=== PATIENT | female | born 1970 | race Caucasian/White ===

== ENCOUNTER 2017-01-25 18:38 | Emergency (ER) | payer MEDICAID, OTHER ==
[~2017-01-25] VITALS: Ht 162.6 cm; Wt 86.0 kg
[2017-01-25 18:41] VITALS: Ht 162.6 cm; Wt 86.0 kg
[2017-01-25] MEDS ORDERED: KETOROLAC 60 MG INJ IM STA (20:32)
--- NOTE | 2017-01-25 22:44 | RADRPT ---
PROCEDURE: XR Knee. CLINICAL INDICATION: Left knee pain and clicking TECHNIQUE: AP, lateral and tunnel views of the left knee were obtained. COMPARISON: None. FINDINGS: No fracture or osseous lesion is identified. There is no evidence for dislocation. Mineralization is within normal limits. Joint spaces are preserved. No evidence of effusion or soft tissue swelli ng is identified. RPTAT:HJJR IMPRESSION: Unremarkable left knee series. Physician Lou Date Time Electronically viewed and signed by Mehul Page Physician on 01/25/2017 22:43 JR/
[2017-01-25] MEDS ORDERED: IBUP-1542 PO (23:32)
[2017-01-25 23:53] VITALS: BP 118/65; PULSE 60; RESP 18
--- NOTE | 2017-01-26 02:42 | ERD ---
ER Documentation Chief Complaint Date/Time DATE: 01/26/17 TIME: 02:36 Chief Complaint numbness right leg x 2 weeks HPI 46-year-old female with no significant past medical history presents the ED complaining of numbness and tingling of her right leg. Reports that she has chronic back pain that started about 2 weeks ago. States that she has been taking Tylenol. Denies any fever, chills, weakness, nausea, vomiting, loss of sensation, loss of range of motion. ROS All systems reviewed and are negative except as per history of present illness. Medications Home Meds Active Scripts Ibuprofen* (Motrin*) 600 Mg Tab, 600 MG PO Q6, #30 TAB take with food Prov:JACK GUILLEN PA-C 01/25/17 Allergies Allergies: Coded Allergies: No Known Allergy (Unverified , 01/25/17) PMhx/Soc Medical and Surgical Hx: pt denies Medical Hx, pt denies Surgical Hx Hx Alcohol Use: No Hx Substance Use: No Hx Tobacco Use: No Smoking Status: Never smoker Physical Exam Vitals Vital Signs Date Time Temp Pulse Resp B/P Pulse Ox O2 Delivery O2 Flow Rate FiO2 01/25/17 23:53 60 18 118/65 97 Room Air 01/25/17 18:41 97.3 78 20 138/68 96 Physical Exam Const: Xus-[id number]-sxegdmiqi, well-nourished. In no acute distress. Head: Atraumatic, normocephalic Eyes: Normal Conjunctiva without injection. No purulent discharge. ENT: Normal external ear, nose. Moist oropharynx without tonsillar exudates. Non -erythematous pharynx. Uvula midline. No drooling. No trismus. Neck: No cervical midline tenderness. Full range of motion. No meningismus. No cervical lymphadenopathy. No JVD. Resp: Clear to auscultation bilaterally. No wheezing, rhonchi, rales, or crackles. No accessory muscle use. No retractions. Cardio: Regular rate and rhythm. No murmurs, rubs or gallops. Abd: Soft, nontender, non distended. Normal bowel sounds. No palpable masses. No rebound tenderness. No guarding. Negative McBurney's point. Negative psoas sign. Negative obturator sign. Skin: No petechiae or rashes Back: No midline tenderness. No CVA tenderness. Positive straight leg test bilaterally. Ext: No cyanosis, or edema. Neur: Awake and alert. Normal gait. Normal coordination. Psych: Normal Mood and Affect Results 24 hrs Current Medications Medications (Trade) Dose Ordered Sig/Jun Route PRN Reason Start Time Stop Time Status Last Admin Dose Admin Ketorolac Tromethamine (Toradol) 60 mg ONCE STAT IM 01/25/17 20:32 01/25/17 20:34 DC 01/25/17 20:54 Procedures/MDM This is a 46-year-old female patient with no significant past medical history presents the ED complaining of right leg numbness and tingling and back pain as well as a clicking sensation of her left knee. PROCEDURE: XR Knee. CLINICAL INDICATION: Left knee pain and clicking TECHNIQUE: AP, lateral and tunnel views of the left knee were obtained. COMPARISON: None. FINDINGS: No fracture or osseous lesion is identified. There is no evidence for dislocation. Mineralization is within normal limits. Joint spaces are preserved. No evidence of effusion or soft tissue swelling is identified. RPTAT:HJJR IMPRESSION: Unremarkable left knee series. Patient is ambulating here in the ED without difficulty. Denied wanting an lennox wrap or crutches. Denies saddle anesthesia, numbness or tingling, urine or bowel incontinence, weakness. Low suspicion for cauda equina syndrome, cord compression, nephrolithiasis, aortic aneurysm, aortic dissection, epidural abscess, spinal hematoma, malignancy, pyelonephritis, or other emergent conditions. Patient's extremity symptoms have stabilized while they have been evaluated in the department and are appropriate for outpatient follow up. No evidence of fractures, dislocations, compartment syndrome, neurologic injury, vascular injury, open joint, open fracture, tendon laceration, septic arthritis , osteomyelitis, DVT, foreign body, or other emergent conditions. Discharge medications: Ibuprofen Follow up with primary care physician in 1-2 days for a referral to an orthopedic physician. Instructed patient to return to the ED sooner for any worsening symptoms. Patient's questions were answered. Patient understood and agreed with discharge plan. Patient discharged stable. Departure Diagnosis: Primary Impression: Sciatica Laterality: right Qualified Code: M54.31 - Sciatica of right side Additional Impression: Left knee pain Chronicity: acute Qualified Code: M25.562 - Acute pain of left knee Condition: Stable Patient Instructions: Understanding Sciatica, Knee Pain, Uncertain Cause, Back Pain W/ Sciatica Referrals: [facility] () Usted se trinidad hecho un examen mdico de control que le indica que no est en iris condicin que requiera tratamiento urgente en el Departamento de Emergencia. Un estudio ms profundo y el tratamiento de olson condicin pueden esperar sin ningn riesgo hasta que usted sea atendida/o en el consultorio de olson mdico o iris cl nancy. Es responsabilidad suya arreglar iris mauricio para el seguimiento del ronn. MANEJO DE CONDICIONES NO URGENTES EN EL FUTURO 1) Si usted tiene un mdico de atencin primaria: Usted debera llamar a olson mdico de atencin primaria antes de venir al departamento de emergencia. Despus de las horas de consultorio, olson doctor o olson asociado/a est disponible por telfono. El mdico o enfermero de zev en el servicio telefnico puede asesorarle por sundeep medio para atender el problema, o ronn contrario se puede programar iris mauricio. 2) Si usted no tiene un mdico de atencin primaria: Llame al mdico o clnica de referencia que aparece abajo hermelindo las horas de consultorio para hacer iris mauricio para que le vean. CLINICAS: [facility] [phone] [facility] [phone] [facility] [phone] [facility] 654 [phone] [address] [facility] [phone] [address] [facility]. [phone] [facility] () Usted se trinidad hecho un examen mdico de control que le indica que no est en iris condicin que requiera tratamiento urgente en el Departamento de Emergencia. Un estudio ms profundo y el tratamiento de olson condicin pueden esperar sin ningn riesgo hasta que usted sea atendida/o en el consultorio de olson mdico o iris cl nancy. Es responsabilidad suya arreglar iris mauricio para el seguimiento del ronn. MANEJO DE CONDICIONES NO URGENTES EN EL FUTURO 1) Si usted tiene un mdico de atencin primaria: Usted debera llamar a olson mdico de atencin primaria antes de venir al departamento de emergencia. Despus de las horas de consultorio, olson doctor o olson asociado/a est disponible por telfono. El mdico o enfermero de zev en el servicio telefnico puede asesorarle por sundeep medio para atender el problema, o ronn contrario se puede programar iris mauricio. 2) Si usted no tiene un mdico de atencin primaria: Llame al mdico o condado institucions de referencia que aparece abajo hermelindo las horas de consultorio para hacer iris mauricio para que le vean. SI USTED NO PUEDE PAGAR PARA LAURA UN MEDICO puede ir a: [facility] [address] [address] [place] [address] [facility] [address] [place] [address] [facility] [address] [place] [address] [facility] [address] [place] [address] [facility] Urgent Care 7 a.m.- 11 p.m. Every Day of the Week NO APPOINTMENT OR AUTHORIZATION NEEDED [facility] Hours: Mon-Fri 9:00 AM - 5:00 PM Additional Instructions: Llame al doctor AMINATA y amy iris MAURICIO PARA DENTRO DE 2-3 OGDEN para un referido laura a un mdico ortopdico si los sntomas no mejoran. Dgale a la secretaria que nosotros le instruimos hacer esta mauricio. Avise o llame si olson condicin se empeora antes de la mauricio. Regresa aqui si peor o no mejor. JACK GUILLEN PA-C Jan 26, 2017 02:42
== END 2017-01-25 23:56 | disposition home or self-care (01) ==
LOC: FTE 18:38
DX: M54.31 Sciatica, right side (principal); M25.562 Pain in left knee
CPT/HCPCS: 73562; 96372; J1885; Z7502